=== PATIENT | female | born 1995 | race African-American/Black ===

== ENCOUNTER 2016-09-17 17:40 | Emergency (ER) | payer OTHER ==
--- NOTE | 2016-09-17 18:00 | ER Document Report ---
ED Medical Screen (RME) - General Chief Complaint: Shortness Of Breath Stated Complaint: CHEST PAIN AND BREATHING CONCERNS Time seen by provider: 17:58 Mode of Arrival: Ambulatory Information source: Patient Notes: 21 yo female presents to ed for short of breath and chest discomfort for a couple weeks after childbirth 3 months ago TRAVEL OUTSIDE OF THE [place] IN LAST 30 DAYS: No - HPI Onset: Other - 3 months Onset/Duration: Persistent Quality of pain: No pain, Dull, Sharp Severity: Severe Pain Level: 5 Associated Symptoms: Chest pain, Shortness of breath Exacerbated by: Denies Relieved by: Denies Similar symptoms previously: Yes Recently seen / treated by doctor: No - Related Data Smoking: Non-smoker Frequency of alcohol use: Rare Drug Abuse: None Allergies/Adverse Reactions: No Known Allergies Allergy (Verified 06/06/16 10:40) Past Medical History Pulmonary Medical History: Reports: Hx Asthma Neurological Medical History: Reports: Hx Migraine - Immunizations Hx Diphtheria, Pertussis, Tetanus Vaccination: No - unknown Physical Exam - Vital signs Vitals: Temp Pulse Resp BP Pulse Ox 98.1 F 63 16 131/83 H 100 09/17/16 17:44 09/17/16 17:44 09/17/16 17:44 09/17/16 17:44 09/17/16 17:44 Course - Vital Signs Vital signs: Temp Pulse Resp BP Pulse Ox 98.1 F 63 16 131/83 H 100 09/17/16 17:44 09/17/16 17:44 09/17/16 17:44 09/17/16 17:44 09/17/16 17:44
[2016-09-17 18:21] LABS: ABSOLUTE EOSINOPHILS # (AUTO) 0.1 10^3/uL (0.0-0.6); ABSOLUTE LYMPHOCYTES (AUTO) 2.2 10^3/uL (0.5-4.7); ABSOLUTE MONOCYTES (AUTO) 0.5 10^3/uL (0.1-1.4); ABSOLUTE NEUT (AUTO) 2.5 10^3/uL (1.7-8.2); BASOPHILS % (AUTO) 0.8 % (0-2); EOSINOPHILS % (AUTO) 1.2 % (0-6); HEMATOCRIT 41.8 % (36.0-47.0); HEMOGLOBIN 13.6 g/dL (12.0-15.5); LYMPHOCYTES % (AUTO) 41.1 % (13-45); MEAN CORPUSCULAR HEMOGLOBIN 28.5 pg (27.0-33.4); MEAN CORPUSCULAR HGB CONC 32.7 g/dL (32.0-36.0); MEAN CORPUSCULAR VOLUME 87 fl (80-97); MONOCYTES % (AUTO) 9.4 % (3-13); RED BLOOD COUNT 4.78 10^6/uL (3.72-5.28); SEGMENTED NEUTROPHILS % (AUTO) 47.5 % (42-78); WHITE BLOOD COUNT 5.3 10^3/uL (4.0-10.5)
[2016-09-17 18:32] LABS: APPEARANCE,URINE CLEAR; BILIRUBIN,URINE NEGATIVE (NEGATIVE); GLUCOSE, URINE NEGATIVE (NEGATIVE); KETONES,URINE NEGATIVE (NEGATIVE); LEUKOCYTE ESTERASE,URINE NEGATIVE (NEGATIVE); NITRITE,URINE NEGATIVE (NEGATIVE); PROTEIN,URINE NEGATIVE (NEGATIVE); URINE SPECIFIC GRAVITY 1.013
[2016-09-17 18:42] LABS: ALANINE AMINOTRANSFERASE 29 U/L (9-52); ALBUMIN 5.1 g/dL (3.5-5.0); ALKALINE PHOSPHATASE 114 U/L (38-126); ANION GAP 16 (5-19); BILIRUBIN,TOTAL 0.6 mg/dL (0.2-1.3); BLOOD UREA NITROGEN 10 mg/dL (7-20); CALCIUM 10.2 mg/dL (8.4-10.2); CARBON DIOXIDE 24 mmol/L (22-30); CHLORIDE 105 mmol/L (98-107); GLUCOSE 94 mg/dL (75-110); LIPASE 189.1 U/L (23-300); POTASSIUM 3.7 mmol/L (3.6-5.0); SODIUM 144.8 mmol/L (137-145)
[2016-09-17 18:44] LABS: ASPARTATE AMINO TRANSFERASE 20 U/L (14-36)
[2016-09-17 22:24] VITALS: BP 129/87
--- NOTE | 2016-09-17 22:29 | ER Document Report ---
ED General - General Chief Complaint: Chest Pain Stated Complaint: CHEST PAIN AND BREATHING CONCERNS Mode of Arrival: Ambulatory Notes: Patient is a 21-year-old female without past medical history, 3 months after an uncomplicated vaginal delivery who presents with 10 weeks of intermittent shortness of breath and chest pain. Does describe the chest pain is an intermittent, dull, pressure-like sensation in her central chest. Nothing improves or worsens the pain. Denies any pleuritic pain. States that occasionally pain is worsened by laying flat or pressing on the chest. She notes that she occasionally feels short of breath without any clear reason. It is not worsened by exertion. Denies history of similar symptoms in the past. Nothing improves her symptoms. She has not seen her primary care physician regarding today's concerns. Denies any history of DVT or pulmonary embolus. She does not use any estrogen. Denies any hemoptysis, unilateral leg swelling, syncope, weakness or numbness. No fever. TRAVEL OUTSIDE OF THE [place] IN LAST 30 DAYS: No - Related Data Allergies/Adverse Reactions: No Known Allergies Allergy (Verified 06/06/16 10:40) Past Medical History - General Information source: Patient - Social History Smoking Status: Never Smoker Chew tobacco use (# tins/day): No Frequency of alcohol use: Rare Drug Abuse: None Lives with: Spouse/Significant other Family History: Reviewed & Not Pertinent Patient has suicidal ideation: No Patient has homicidal ideation: No Pulmonary Medical History: Reports: Hx Asthma Neurological Medical History: Reports: Hx Migraine - Immunizations Hx Diphtheria, Pertussis, Tetanus Vaccination: No - unknown Review of Systems - Review of Systems Notes: Constitutional: Negative for fever. HENT: Negative for sore throat. Eyes: Negative for visual changes. Cardiovascular: Positive for chest pain. Respiratory: Positive for shortness of breath. Gastrointestinal: Negative for abdominal pain, vomiting or diarrhea. Genitourinary: Negative for dysuria. Musculoskeletal: Negative for back pain. Skin: Negative for rash. Neurological: Negative for headaches, weakness or numbness. 10 point ROS negative except as marked above and in HPI. Physical Exam - Vital signs Vitals: Temp Pulse Resp BP Pulse Ox 98.1 F 63 16 131/83 H 100 09/17/16 17:44 09/17/16 17:44 09/17/16 17:44 09/17/16 17:44 09/17/16 17:44 Notes: PHYSICAL EXAMINATION: GENERAL: Well-appearing, well-nourished and in no acute distress. HEAD: Atraumatic, normocephalic. EYES: Pupils equal round and reactive to light, extraocular movements intact, sclera anicteric, conjunctiva are normal. ENT: nares patent, oropharynx clear without exudates. Moist mucous membranes. NECK: Normal range of motion, supple without lymphadenopathy LUNGS: Breath sounds clear to auscultation bilaterally and equal. No wheezes rales or rhonchi. HEART: Regular rate and rhythm without murmurs ABDOMEN: Soft, nontender, normoactive bowel sounds. No guarding, no rebound. No masses appreciated. EXTREMITIES: Normal range of motion, no pitting or edema. No cyanosis. NEUROLOGICAL: No focal neurological deficits. Moves all extremities spontaneously and on command. PSYCH: Normal mood, normal affect. SKIN: Warm, Dry, normal turgor, no rashes or lesions noted. Course - Re-evaluation Re-evalutation: 09/18/16 03:21 Presentation of chest pain in an otherwise well appearing patient. Low clinical suspicion for ACS given clinical history, exam, EKG without ST elevations or depressions, and negative initial troponin. HEART score less than or equal to 3. PE also seems unlikely given clinical history, absence of tachycardia or dyspnea. Patient is PERC criteria negative however, given that her chest pain with dyspnea started within 3 weeks of her vaginal delivery a d-dimer was obtained to evaluate for the possibility of a pulmonary embolus. This was negative so I will not proceed with a CTA at this time. CXR without evidence of pneumothorax or pneumonia. No widened mediastinum. Aortic dissection also seems unlikely given history, symmetric pulses, CXR, and vitals. Patient does also admit to severe, chronic daily anxiety that she feels may be playing into this intermittent chest pain as well as shortness of breath. Her at the bedside agrees and states that he believes her symptoms are related to anxiety. After discussion with the patient and her bedside regarding medical management of chronic daily anxiety, will start fluoxetine 20 mg daily at this time and have expressed to them the clear need to follow closely with primary care physician for continued management of this condition. At this time will discharge with return precautions and follow-up recommendations. Verbal discharge instructions given a the bedside and opportunity for questions given. Medication warnings reviewed. Patient is in agreement with this plan and has verbalized understanding of return precautions and the need for primary care follow-up in the next 24-72 hours. - Vital Signs Vital signs: Temp Pulse Resp BP Pulse Ox 97.9 F 50 L 14 129/87 H 100 09/17/16 22:23 09/17/16 22:23 09/17/16 22:23 09/17/16 22:23 09/17/16 22:23 - Laboratory Result Diagrams: 09/17/16 18:00 09/17/16 18:00 Laboratory results interpreted by me: 09/17/16 09/17/16 18:00 18:00 Albumin 5.1 H Urine Urobilinogen 2.0 H - Diagnostic Test Radiology reviewed: Image reviewed, Reports reviewed Radiology results interpreted by me: 09/18/16 03:23 Chest x-ray: No acute infiltrate or pneumothorax. - EKG Interpretation by Me Additional EKG results interpreted by me: 09/18/16 03:23 Normal sinus rhythm. No ST elevations or depressions. Rate 67. Discharge - Discharge Clinical Impression: Chest pain Qualifiers: Chest pain type: unspecified Qualified Code(s): R07.9 - Chest pain, unspecified Dyspnea Qualifiers: Dyspnea type: shortness of breath Qualified Code(s): R06.02 - Shortness of breath Condition: Good Disposition: HOME, SELF-CARE Additional Instructions: You were seen today for chest pain. The exact cause of your pain is unclear. However, based on your cardiac enzyme testing, chest x-ray, and EKG it does not appear that it is from an immediately life-threatening cause at this time. Although your testing here is normal is critical that you follow-up with your primary care physician for continued evaluation of this chest pain. Please return to emergency department immediately if you have worsening of your chest pain, shortness of breath, vomiting, become unable to exert yourself due to pain or difficulty breathing, you pass out, or have any pain that radiates into your arms, jaw, or back. Please also return if you have any additional symptoms that are concerning to you. Prescriptions: Fluoxetine HCl 20 mg PO DAILY #60 capsule
== END 2016-09-17 22:34 | disposition home or self-care (01) ==
LOC: ER 17:40
DX: R07.89 Other chest pain (principal); R06.02 Shortness of breath; J45.909 Unspecified asthma, uncomplicated; F41.9 Anxiety disorder, unspecified
CPT/HCPCS: 36415; 71020; 80053; 81001; 83690; 84484; 84703; 85025; 85379; 99285

== ENCOUNTER → 2019-05-09 | Outpatient (CLI) | payer SELFPAY ==
--- NOTE | 2019-05-09 14:40 | RADIOLOGY REPORT (SQ) ---
EXAM DESCRIPTION: U/S [id number] TRNABD 1GES W/ODOP COMPLETED DATE/TIME: 05/09/2019 2:26 pm REASON FOR STUDY: Z34.81 ENCOUNTER FOR SUPRVSN OF NORMAL , FIRST TRIMESTER Z34.81 ENCOUNTE R FOR SUPRVSN OF NORMAL , FIRST TRIM COMPARISON: None. TECHNIQUE: Transabdominal static and realtime grayscale images acquired of the pelvis. Additional se lected spectral and color Doppler images recorded. All images stored on PACs. bHCG: Not applicable. CLINICAL DATES: LMP 02/06/2019. 13 weeks 1 day. LIMITATIONS: None. FINDINGS: FETUS: Single Living intrauterine . ULTRASOUND EGA: 13 weeks 3 days. ULTRASOUND YOSHI: 11/11/2019 EFW: Not applicable less than 20 weeks. CRL: 7.27 cm. FHR: 141 beats per minute. SURVEY: No visualized anomalies. AMNIOTIC FLUID: Adequate amount. PLACENTA: Not yet developed due to early gestation. SUBCHORIONIC BLEED: Yes SIZE OF BLEED: 19 x 27 x 14 mm. UTERUS: No masses. No anomalies. CERVICAL LENGTH: 2.7 cm. Closed. RIGHT ADNEXA: Normal ovary with normal vascular flow. 3.6 x 2.4 x 2 cm. No adnexal free fluid. No adnexal masses. LEFT ADNEXA: Normal ovary with normal vascular flow. 3 x 2.2 x 1.7 cm. No adnexal free fluid. No adnexal masses. FREE FLUID: None. OTHER: No other significant finding. IMPRESSION: LIVING INTRAUTERINE . EGA 13 weeks 3 days. Trimester of : Second trimester - 13 weeks 1 day to 27 weeks 6 days. TECHNICAL DOCUMENTATION: JOB ID: [id number]- All Rights Reserved rev Reading location - IP/workstation name: [email or web address]
== END ==
LOC: RAD 14:00
PROVIDERS: ATTEND Midwife
DX: Z34.82 Encounter for supervision of other normal pregnancy, second trimester (principal)
CPT/HCPCS: 76801

== ENCOUNTER 2019-05-14 04:48 | Emergency (ER) | payer MEDICAID ==
[2019-05-14 05:12] LABS: ABSOLUTE EOSINOPHILS # (AUTO) 0.1 10^3/uL (0.0-0.6); ABSOLUTE LYMPHOCYTES (AUTO) 2.4 10^3/uL (0.5-4.7); ABSOLUTE MONOCYTES (AUTO) 0.8 10^3/uL (0.1-1.4); BASOPHILS % (AUTO) 0.4 % (0-2); EOSINOPHILS % (AUTO) 1.2 % (0-6); HEMATOCRIT 35.2 % (36.0-47.0); HEMOGLOBIN 11.9 g/dL (12.0-15.5); MEAN CORPUSCULAR HEMOGLOBIN 29.7 pg (27.0-33.4); MEAN CORPUSCULAR HGB CONC 33.7 g/dL (32.0-36.0); MEAN CORPUSCULAR VOLUME 88 fl (80-97); MONOCYTES % (AUTO) 9.9 % (3-13); PLATELET COUNT 285 10^3/uL (150-450); RED CELL DISTRIBUTION WIDTH 14.2 % (11.5-14.0); SEGMENTED NEUTROPHILS % (AUTO) 59.5 % (42-78); TOTAL CELLS COUNTED % (AUTO) 100 %; WHITE BLOOD COUNT 8.4 10^3/uL (4.0-10.5)
--- NOTE | 2019-05-14 06:20 | RADIOLOGY REPORT (SQ) ---
EXAM DESCRIPTION: US LIMITED COMPLETED DATE/TME: 05/14/2019 04:53 CLINICAL HISTORY: 24 years, Female, vaginal bleeding 13weeks COMPARISON: None. TECHNIQUE: Transabdominal pelvic ultrasound LIMITATIONS: None. FINDINGS: Maternal: Ovaries: Right ovary measures 4.1 x 1.5 x 2.9 cm. The right ovary demonstrates normal Doppler flow. The left ovary is not uniquely identified. Cervix: Closed and approximately 3.3 cm in length. : Number: Cisneros. Status: Live . Presentation: Variable. Heart rate: 144 bpm. DIAMOND: Subjectively within normal limits . Placenta: Position: Posterior. Complications: No previa or abruptio. Biometry: BPD: 2.55 cm = 14 weeks 3 days. HC: 9.68 cm = 14 weeks 3 days. AC: 8.27 cm = 14 weeks 4 days. FL: 1.25 cm = 13 weeks 5 days. Ratios (%): FL/AC: 15.1 (20-24). FL/BPD: 49.0 (71-87). HC/AC: 1.17 (1.14-1.30). CI: 82.0 (70-86). Clinical: LMP: 02/04/2019. MA: 14 weeks one day. YOSHI: 11/11/2019. Ultrasound: MA: 14 weeks two days. YOSHI: 11/10/2019. IMPRESSION: Single live intrauterine , as described above copyright 2010 [employer]- All Rights Reserved
[2019-05-14 06:35] LABS: APPEARANCE,URINE SLIGHTLY-CLOUDY; BILIRUBIN,URINE NEGATIVE (NEGATIVE); COLOR,URINE YELLOW; GLUCOSE, URINE NEGATIVE (NEGATIVE); KETONES,URINE NEGATIVE (NEGATIVE); LEUKOCYTE ESTERASE,URINE NEGATIVE (NEGATIVE); NITRITE,URINE NEGATIVE (NEGATIVE); PROTEIN,URINE NEGATIVE (NEGATIVE); URINE SPECIFIC GRAVITY 1.029; UROBILINOGEN,URINE NEGATIVE mg/dL (<2.0)
[2019-05-14 06:43] VITALS: BP 110/63
--- NOTE | 2019-05-14 09:12 | ER Document Report ---
Entered by ANTONIO LARSEN SCRIBE 05/14/19 0614 Acting as scribe for:GODFREY DURAND MD ED GI/ - General Chief Complaint: Vag Bleeding, +preg <12wks Stated Complaint: POSSIBLE MISCARAGE Time Seen by Provider: 05/14/19 06:05 Mode of Arrival: Ambulatory Information source: Patient Notes: 24 year old female that presents to the emergency department today with complaints of vaginal bleeding which began just prior to arrival this morning. Patient is , currently 14 weeks . Patient reports having minimal abdominal cramping last night. Patient reported to a nurse in triage that she felt a "warm agarwal in her underwear" when getting up out of bed this morning and she had passed a large clot. Patient is known to have O+ blood type. Patient is taking vitamins. TRAVEL OUTSIDE OF THE [place] IN LAST 30 DAYS: No - Related Data Allergies/Adverse Reactions: No Known Allergies Allergy (Verified 06/06/16 10:40) Past Medical History - General Information source: Patient - Social History Smoking Status: Unknown if Ever Smoked Cigarette use (# per day): No Chew tobacco use (# tins/day): No Frequency of alcohol use: None Drug Abuse: None Lives with: Family Family History: Reviewed & Not Pertinent Patient has suicidal ideation: No Patient has homicidal ideation: No Pulmonary Medical History: Reports: Hx Asthma Neurological Medical History: Reports: Hx Migraine - Immunizations Hx Diphtheria, Pertussis, Tetanus Vaccination: No - unknown Review of Systems - Review of Systems Constitutional: No symptoms reported EENT: No symptoms reported Cardiovascular: No symptoms reported Respiratory: No symptoms reported Gastrointestinal: No symptoms reported Genitourinary: No symptoms reported Female Genitourinary: See HPI, - 14 weeks, Vaginal bleeding Musculoskeletal: No symptoms reported Skin: No symptoms reported Hematologic/Lymphatic: No symptoms reported Neurological/Psychological: No symptoms reported -: Yes All other systems reviewed and negative Physical Exam - Vital signs Vitals: Temp Pulse Resp BP Pulse Ox 98.3 F 78 16 114/66 100 05/14/19 04:51 05/14/19 04:51 05/14/19 04:51 05/14/19 04:51 05/14/19 04:51 - Notes Notes: Physical Exam: General: Alert, appears well, gravid female. HEENT: Normocephalic. Atraumatic. PERRL. Extraocular movements intact. Oropharynx clear. Neck: Supple. Non-tender. Respiratory: No respiratory distress. Clear and equal breath sounds bilaterally. Cardiovascular: Regular rate and rhythm. Abdominal: Gravid female. Non-tender. No distension. Normal Bowel Sounds. Back: No gross abnormalities. Extremities: Moves all four extremities. Upper extremities: Normal inspection. Normal ROM. Lower extremities: Normal inspection. No edema. Normal ROM. Neurological: Normal cognition. AAOx4. Normal speech. Psychological: Normal affect. Normal Mood. Skin: Warm. Dry. Normal color. Course - Vital Signs Vital signs: Temp Pulse Resp BP Pulse Ox 98 F 68 17 110/63 99 05/14/19 06:42 05/14/19 06:42 05/14/19 06:42 05/14/19 06:42 05/14/19 06:42 - Laboratory Result Diagrams: 05/14/19 04:55 Laboratory results interpreted by me: 05/14/19 05/14/19 05/14/19 04:55 04:55 06:00 Hgb 11.9 L Hct 35.2 L RDW 14.2 H Beta HCG, Quant 32339.00 H Urine Blood LARGE H Urine Ascorbic Acid 20 H - Diagnostic Test Radiology reviewed: Image reviewed - Ultrasound shows a single intrauterine measuring 14 weeks 2 days with heart rate 144. There appears to be some subchorionic bleed. Discharge - Discharge Clinical Impression: with 14 completed weeks gestation, Vaginal bleeding in Subchorionic bleed Qualifiers: Fetus number: single or unspecified fetus Trimester: second trimester Qualified Code(s): O41.8X20 - Other specified disorders of amniotic fluid and membranes, second trimester, not applicable or unspecified; O46.8X2 - Other antepartum hemorrhage, second trimester Condition: Stable Disposition: HOME, SELF-CARE Additional Instructions: Bleeding During Early You have been evaluated for passing blood while . While we take this symptom very seriously, most women with your degree of bleeding will go on to have a perfectly normal baby. At this time, there is no indication that a miscarriage will occur. (A miscarriage occurs when the fetus is abnormal. There is no medicine or treatment to prevent it.) A more serious cause of bleeding is tubal . An ultrasound can show whether the is in the uterus or in the tube. Sometimes in early , no fetus is seen. In this case, careful follow-up, including repeat blood tests and repeat ultrasound, is necessary. You should rest in bed until the symptoms have resolved. Do not douche or have sex for at least a week, or until OK'd by the doctor. Don't use tampons. Call the doctor or return for re-examination if there is an increase in bleeding or cramping, extreme weakness, fainting, new abdominal pain, fever, or passage of tissue. Follow-up with [facility] this week as scheduled. If you have additional bleeding and clots, call [facility] to be seen on Wednesday. RETURN TO THE EMERGENCY ROOM IF ANY NEW OR WORSENING SYMPTOMS. Forms: Return to Work Scribe Attestation: 05/14/19 06:22 I personally performed the services described in the documentation, reviewed and edited the documentation which was dictated to the scribe in my presence, and it accurately records my words and actions. I personally performed the services described in the documentation, reviewed and edited the documentation which was dictated to the scribe in my presence, and it accurately records my words and actions.
== END 2019-05-14 06:42 | disposition home or self-care (01) ==
LOC: ER 04:48
DX: O20.8 Other hemorrhage in early pregnancy (principal); O99.512 Diseases of the respiratory system complicating pregnancy, second trimester; J45.909 Unspecified asthma, uncomplicated; Z3A.14 14 weeks gestation of pregnancy; Z79.899 Other long term (current) drug therapy
CPT/HCPCS: 36415; 76815; 81001; 84702; 85025; 86900; 86901; 99284

== ENCOUNTER 2019-10-06 07:59 | Outpatient (CLI) | payer MEDICAID ==
[2019-10-06 08:32] LABS: APPEARANCE,URINE CLEAR; BILIRUBIN,URINE NEGATIVE (NEGATIVE); COLOR,URINE YELLOW; GLUCOSE, URINE NEGATIVE (NEGATIVE); KETONES,URINE NEGATIVE (NEGATIVE); LEUKOCYTE ESTERASE,URINE NEGATIVE (NEGATIVE); NITRITE,URINE NEGATIVE (NEGATIVE); PROTEIN,URINE NEGATIVE (NEGATIVE); URINE SPECIFIC GRAVITY 1.014; UROBILINOGEN,URINE NEGATIVE mg/dL (<2.0)
[2019-10-06 08:57] LABS: URINE AMPHETAMINES SCREEN NEGATIVE; URINE BARBITURATES SCREEN NEGATIVE; URINE BENZODIAZEPINES SCREEN NEGATIVE; URINE COCAINE SCREEN NEGATIVE; URINE MARIJUANA (THC) SCREEN NEGATIVE; URINE METHADONE SCREEN NEGATIVE; URINE PHENCYCLIDINE SCREEN NEGATIVE
[2019-10-06 09:13] LABS: A TYPE INFLUENZA AG NEGATIVE (NEGATIVE); B INFLUENZA AG NEGATIVE (NEGATIVE)
[2019-10-06] MEDS ORDERED: ACETAMINOPHEN 325 MG TABLET PO ONE (10:23)
[2019-10-06] MEDS ORDERED: ACETAMINOPHEN 325 MG TABLET ONE (10:25)
== END 2019-10-06 10:43 | disposition home or self-care (01) ==
LOC: LC 07:59
PROVIDERS: ATTEND Student in an Organized Health Care Education/Training Program
PROC: 4A1HXCZ Monitoring of Products of Conception, Cardiac Rate, External Approach (ICD-10-PCS; principal; 2019-10-06)
DX: O98.513 Other viral diseases complicating pregnancy, third trimester (principal); B33.8 Other specified viral diseases; Z3A.34 34 weeks gestation of pregnancy
CPT/HCPCS: 81001; 80307; 87804; 59025; J3490

== ENCOUNTER 2019-11-17 03:58 | Inpatient (IN) | payer MEDICAID ==
[2019-11-17 04:39] LABS: APPEARANCE,URINE SLIGHTLY-CLOUDY; BILIRUBIN,URINE NEGATIVE (NEGATIVE); COLOR,URINE YELLOW; GLUCOSE, URINE NEGATIVE (NEGATIVE); KETONES,URINE NEGATIVE (NEGATIVE); LEUKOCYTE ESTERASE,URINE SMALL (NEGATIVE); NITRITE,URINE NEGATIVE (NEGATIVE); PROTEIN,URINE NEGATIVE (NEGATIVE); URINE SPECIFIC GRAVITY 1.011; UROBILINOGEN,URINE NEGATIVE mg/dL (<2.0)
[2019-11-17 04:56] LABS: URINE AMPHETAMINES SCREEN NEGATIVE; URINE BARBITURATES SCREEN NEGATIVE; URINE BENZODIAZEPINES SCREEN NEGATIVE; URINE COCAINE SCREEN NEGATIVE; URINE MARIJUANA (THC) SCREEN NEGATIVE; URINE METHADONE SCREEN NEGATIVE; URINE PHENCYCLIDINE SCREEN NEGATIVE
[2019-11-17] MEDS ORDERED: OXYTOCIN 10 UNIT/ML VIAL ONE (05:09)
[2019-11-17] MEDS ORDERED: OXYTOCIN/NORMAL SALINE 20 UNIT/1,000 ML RTUINJ ONE (05:10)
[2019-11-17] MEDS ORDERED: PENICILLIN G-K 5 MILLION UNIT VIAL ONE (05:10)
[2019-11-17] MEDS ORDERED: MISOPROSTOL 0.2 MG TABLET ONE (05:10)
[2019-11-17] MEDS ORDERED: LIDOCAINE 1% INJ-PF (10 MG/ML) 30 ML SDV ONE (05:10)
[2019-11-17] MEDS ORDERED: RINGERS SOLUTION,LACTATED 1,000 ML IV PRN (05:14)
--- NOTE | 2019-11-17 05:35 | Admission Physical ---
Datetime Report Generated by CPN: 11/17/2019 05:35 CURRENT ADMISSION Chief Complaint: Uterine Contractions Indication for Induction: Not Applicable Admit Impression : Term, Intrauterine Admit Plan: Admit to Unit; Initiate Labor Protocol ALLERGIES Medication Allergies: No Medication Allergies: No Known Allergies (11/17/2019) Latex: No Latex Allergies OBSTETRICAL HISTORY EDC: 11/11/2019 00:00 : 2 Para: 1 Term: 1 : 0 SAB: 0 IAB: 0 Ectopic: 0 Livin Cesareans: 0 VBACs: 0 Multiple Births: 0 Gestational Diabetes: No Rh Sensitization: No Incompetent Cervix: No RICO: No Infertility: No ART Treatment: No Uterine Anomaly: No IUGR: No Hx Previous C/S: No Macrosomia: Yes Hx Loss/Stillborn: No PIH: Unknown Hx : No Placenta Previa/Abruption: No Depression/PP Depression: No PTL/PROM: No Post Hemorrhage: No Current Procedures: Ultrasound; NST Obstetrical History Comments: G1- questionable elevated blood pressure and headaches after last , Del 9lb female at term 05/2016 G-2 no complaints. Tx for BV and yeast SEE RECORDS Alcohol: No Marijuana : No Cocaine: No Other Illicit Drugs: No Cigarettes: Never Smoker. [id number] MEDICAL HISTORY Diabetes: No Blood Transfusion: No Pulmonary Disease (Asthma, TB): Yes Breast Disease: No Hypertension: No Independent Driver Surgery: No Heart Disease: No Hosp/Surgery: Yes Autoimmune Disorder: No Anesthetic Complications: No Kidney Disease: No Abnormal Pap Smear: No Neuro/Epilepsy: No Psychiatric Disorders: No Other Medical Diseases: No Hepatitis/Liver Disease: No Significant Family History: No Varicosities/Phlebitis: No Trauma/Violence : No Thyroid Dysfunction: No INFECTIOUS HISTORY Gonorrhea: No Genital Herpes: No Chlamydia: No Tuberculosis: No Syphilis: No Hepatitis: No HIV/AIDS Exposure: No Rash or Viral Illness: No HPV: No PHYSICAL EXAM General: Normal HEENT: Normal Neurologic: Normal Thyroid: Normal Heart: Normal Lungs: Normal Breast: Deferred Back: Normal Abdomen: Normal Genitourinary Exam: Normal Extremities: Normal DTRs: Normal Pelvic Type: Adequate FETUS A EGA: 40.6 PLANS FOR LABOR AND DELIVERY Labor and Delivery: None Pain Management: Epidural Feeding Preference: Formula Benefit of Breast Feed Discussed: Yes Circumcision: N/A INFORMED CONSENT Signature: with User ID: [email or web address]
[2019-11-17] MEDS ORDERED: RINGERS SOLUTION,LACTATED 1,000 ML IV ONE (06:00)
[2019-11-17] MEDS ORDERED: PENICILLIN G POTASSIUM 5,000,000 UNIT in DEXTROSE 5%-WATER 100 ML IV ONE (06:00)
[2019-11-17] MEDS ORDERED: BENZOCAINE/MENTHOL AEROSOL SPRAY 56 ML TOP PRN (06:20)
[2019-11-17] MEDS ORDERED: ZOLPIDEM TARTRATE 5 MG TABLET PO PRN (06:20)
[2019-11-17] MEDS ORDERED: GLYCERIN/WITCH HAZEL LEAF 1 EACH MED..WIPE TP PRN (06:20)
[2019-11-17] MEDS ORDERED: DIPHENHYDRAMINE HCL 25 MG CAPSULE PO PRN (06:20)
[2019-11-17] MEDS ORDERED: PROMETHAZINE HCL 25 MG TABLET PO PRN (06:20)
[2019-11-17] MEDS ORDERED: DIBUCAINE 1% OINTMENT 28 GM TP PRN (06:20)
[2019-11-17] MEDS ORDERED: PROMETHAZINE HCL 25 MG SUPP.RECT PR PRN (06:20)
[2019-11-17] MEDS ORDERED: DIPH/PERTUSS(ACELL)/TETANUS VAC/PF 0.5 ML SYR (>=10YO) IM PRN (06:20)
[2019-11-17] MEDS ORDERED: ACETAMINOPHEN WITH CODEINE #3 TABLET PO PRN (06:20)
[2019-11-17] MEDS ORDERED: OXYTOCIN/NORMAL SALINE 20 UNIT/1,000 ML RTUINJ IV PRN (06:20)
[2019-11-17] MEDS ORDERED: PROMETHAZINE HCL INJ 25 MG/1 ML VIAL IV PRN (06:20)
[2019-11-17] MEDS ORDERED: MEASLES,MUMPS&RUBELLA VACC/PF 0.5 ML VIAL SUBCUT PRN (06:20)
[2019-11-17] MEDS ORDERED: NA PHOS,M-B/NA PHOS,DI-BA (ADULT) 133 ML ENEMA PR PRN (06:20)
[2019-11-17] MEDS ORDERED: PSEUDOEPHEDRINE HCL 30 MG TABLET PO PRN (06:20)
[2019-11-17] MEDS ORDERED: MAGNESIUM HYDROXIDE SUSP 30 ML UDCUP PO PRN (06:20)
[2019-11-17] MEDS ORDERED: ACETAMINOPHEN 650 MG SUPP.RECT PR PRN (06:20)
[2019-11-17] MEDS ORDERED: ACETAMINOPHEN WITH CODEINE #3 TABLET ONE (06:27)
[2019-11-17] MEDS ORDERED: IBUPROFEN 800 MG TABLET ONE (06:27)
[2019-11-17 07:00] LABS: ABSOLUTE LYMPHOCYTES (AUTO) 1.2 10^3/uL (0.5-4.7); ABSOLUTE MONOCYTES (AUTO) 0.7 10^3/uL (0.1-1.4); ABSOLUTE NEUT (AUTO) 6.4 10^3/uL (1.7-8.2); BASOPHILS % (AUTO) 0.3 % (0-2); EOSINOPHILS % (AUTO) 0.3 % (0-6); HEMATOCRIT 35.2 % (36.0-47.0); LYMPHOCYTES % (AUTO) 13.8 % (13-45); MEAN CORPUSCULAR HEMOGLOBIN 31.5 pg (27.0-33.4); MEAN CORPUSCULAR HGB CONC 34.2 g/dL (32.0-36.0); MEAN CORPUSCULAR VOLUME 92 fl (80-97); MONOCYTES % (AUTO) 8.5 % (3-13); PLATELET COUNT 214 10^3/uL (150-450); RED BLOOD COUNT 3.82 10^6/uL (3.72-5.28); RED CELL DISTRIBUTION WIDTH 15.5 % (11.5-14.0); SEGMENTED NEUTROPHILS % (AUTO) 77.1 % (42-78); TOTAL CELLS COUNTED % (AUTO) 100 %; WHITE BLOOD COUNT 8.3 10^3/uL (4.0-10.5)
--- NOTE | 2019-11-17 07:53 | Delivery Summary ---
Del Sum A-C Datetime Report Generated by CPN: 11/17/2019 07:53 DELIVERY PERSONNEL DELIVERY PERSONNEL: [id number] Delivery Doctor:: Paco Rubi MD Labor and Delivery Nurse:: Geno Donnelly RNmaterial mixer Nurse:: Dodie [facility], RN MATERNAL INFORMATION Delivery Anesthesia: None Medications After Delivery: Pitocin Bolus-Please Comment Meds After Delivery Comment: Pitocin 20 units/1000 ml NSS Estimated Blood Loss (ml): 200 Delivery QBL: 200 Maternal Complications: Precipitous Labor (<3hrs) LABOR SUMMARY EDC: 11/11/2019 00:00 No. Babies in Womb: 1 Attempted: No Labor Anesthesia: None LABOR INFORMATION Reason for Induction: Not Applicable Onset of Labor: 11/17/2019 02:30 Complete Dilatation: 11/17/2019 05:39 Oxytocin: N/A Group B Beta Strep: Positive Antibiotics # of Doses: 1 Antibiotics Time of Last Dose: 521 Name of Antibiotic Given: PCN Steroids Given: None Reason Steroids Not Administered: Not Applicable MEMBRANES Membranes Rupture Method: Artificial Rupture of Membranes: 11/17/2019 05:43 Length of Rupture (hr): 0.45 Amniotic Fluid Color: Clear Amniotic Fluid Amount: Small Amniotic Fluid Odor: Normal STAGES OF LABOR Stage 1 hr: 3 Stage 1 min: 9 Stage 2 hr: 0 Stage 2 min: 31 Stage 3 hr: 0 Stage 3 min: 4 Total Time in Labor hr: 3 Total Time in Labor min: 44 VAGINAL DELIVERY Episiotomy: None Laceration #1: None Laceration Extension #1: N/A Sponge Count Correct: N/A Sharps Count Correct: N/A CSECTION DELIVERY Primary Indication: N/A Secondary Indication: N/A CSection Incidence: N/A Labor: N/A Elective: N/A CSection Incision: N/A BABY A INFORMATION Infant Delivery Date/Time: 11/17/2019 06:10 Method of Delivery: Vaginal Nurse Controlled Delivery: No Born in Route : No : N/A Forceps: N/A Vacuum Extraction: N/A Shoulder Dystocia : No PRESENTATION/POSITION BABY A Presentation: Cephalic Cephalic Presentation: Vertex Vertex Position: Right Occipital Anterior Breech Presentation: N/A PLACENTA INFORMATION BABY A Placenta Delivery Time : 11/17/2019 06:14 Placenta Method of Delivery: Spontaneous Placenta Status: Delivered SCORES BABY A Heart Rate 1 min: >100 bpm Resp Effort 1 min: Good Cry Reflex Irritability 1 min: Cough or Sneeze or Pulls Away Muscle Tone 1 min: Active Motion Color 1 min: Body Bartley, Extremities Blue Resuscitation Effort 1 min: Tactile Stimulation SCORE 1 MIN: 9 Heart Rate 5 min: >100 bpm Resp Effort 5 min: Good Cry Reflex Irritability 5 min: Cough or Sneeze or Pulls Away Muscle Tone 5 min: Active Motion Color 5 min: Body Bartley, Extremities Blue Resuscitation Effort 5 min: Tactile Stimulation SCORE 5 MIN: 9 INFORMATION BABY A Gestational Age at Delivery: 40.6 Gestational Status: Full Term- 39- 40.6 Weeks Infant Outcome : Liveborn Infant Condition : Stable Sex: Female IDENTIFICATION BABY A Verification Date/Time: 11/17/2019 06:17 ID Band Number: [id number] Mother's Name Verified: Yes Infant RN Verifying : , RN Additional Verifying Personnel: Sloane, DIRECTOR OF INDUSTRIAL RELATIONS WEIGHT/LENGTH BABY A Birthweight (gm): 3760 Infant Weight (lb): 8 Weight (oz): 5 Length (in): 18.25 Infant Length (cm): 46.36 CORD INFORMATION BABY A No. Cord Vessels: 3 Nuchal Cord : N/A Cord Blood Taken: Yes-For Eval (Mom's Blood Type - or O+) Infant Suction: Nose ASSESSMENT BABY A Infant Complications: None Physical Findings at Delivery: Within Normal Limits Respirations: Appears Normal Skin to Skin: Yes Skin to Skin Time (min): 30 Transferred To: Remains with Mother SIGNATURES Signature: with User ID: [email or web address]
[2019-11-17] MEDS ORDERED: ALBUTEROL SULFATE HFA (90 MCG/PUFF) 8 GM MDI IH PRN (08:41)
[2019-11-17] MEDS ORDERED: PENICILLIN G POTASSIUM 2,500,000 UNIT in DEXTROSE 5%-WATER 50 ML IV SCH (10:00)
[2019-11-17] MEDS: SENNOSIDES/DOCUSATE 8.6-50 MG 1 EACH TABLET PO SCH (10:39)
[2019-11-17] MEDS: DOCUSATE SODIUM 100 MG CAPSULE PO SCH ×2 (10:39→17:47)
[2019-11-17] MEDS: PRENATAL VITAMIN W DHA CAPSULE PO SCH (10:39)
[2019-11-17] MEDS: FAMOTIDINE 20 MG TABLET PO SCH ×2 (10:39→22:01)
[2019-11-17] MEDS: FERROUS SULFATE 325 MG TABLET PO SCH ×2 (10:40→17:47)
[2019-11-17] MEDS: IBUPROFEN 800 MG TABLET PO SCH ×2 (13:19→22:02)
[2019-11-18] MEDS: IBUPROFEN 800 MG TABLET PO SCH ×3 (05:12→21:54)
[2019-11-18 08:13] LABS: HEMATOCRIT 28.5 % (36.0-47.0); MEAN CORPUSCULAR HEMOGLOBIN 31.8 pg (27.0-33.4); MEAN CORPUSCULAR HGB CONC 34.8 g/dL (32.0-36.0); MEAN CORPUSCULAR VOLUME 91 fl (80-97); PLATELET COUNT 206 10^3/uL (150-450); RED BLOOD COUNT 3.11 10^6/uL (3.72-5.28); RED CELL DISTRIBUTION WIDTH 15.7 % (11.5-14.0); WHITE BLOOD COUNT 12.2 10^3/uL (4.0-10.5)
[2019-11-18 08:16] LABS: HEMOGLOBIN 9.9 g/dL (12.0-15.5)
[2019-11-18] MEDS: FERROUS SULFATE 325 MG TABLET PO SCH ×2 (09:56→17:42)
[2019-11-18] MEDS: DOCUSATE SODIUM 100 MG CAPSULE PO SCH ×2 (09:56→17:42)
[2019-11-18] MEDS: PRENATAL VITAMIN W DHA CAPSULE PO SCH (09:56)
[2019-11-18] MEDS: FAMOTIDINE 20 MG TABLET PO SCH ×2 (09:58→21:55)
[2019-11-18] MEDS: SENNOSIDES/DOCUSATE 8.6-50 MG 1 EACH TABLET PO SCH (10:00)
--- NOTE | 2019-11-18 11:33 | PDOC PROGRESS REPORT ---
Subjective-OB Progress Note for:: 11/18/19 Subjective: OOB in room and halls, feeling good, no c/o, Physical Exam (OB) Vital Signs: Temp Pulse Resp BP Pulse Ox 98.4 F 95 16 112/71 100 11/17/19 19:55 11/17/19 19:55 11/17/19 19:55 11/17/19 19:55 11/17/19 19:55 Intake & Output 11/17/19 11/18/19 11/19/19 06:59 06:59 07:59 Intake Total 900 Balance 900 Weight 70.5 kg - PIH/Pre-Eclampsia Headache: Absent Epigastric Pain: No Visual Changes: No - Lochia Lochia Amount: Scant < 10 ml Lochia Color: Rubra/Red - Abdomen Description: Tender, Soft Hernia Present: No Fundal Description: Firm, Midline Fundal Height: u/u - u/2 Objective-Diagnostic Laboratory: 11/18/19 07:08 11/18/19 07:08 WBC 12.2 H RBC 3.11 L Hgb 9.9 L D Hct 28.5 L MCV 91 MCH 31.8 MCHC 34.8 RDW 15.7 H Plt Count 206 Assessment and Plan(PN) - Assessment and Plan (1) Pre-eclampsia during in third trimester, antepartum Is this a current diagnosis for this admission?: Yes (2) Vaginal delivery Is this a current diagnosis for this admission?: Yes - Time Spent with Patient Time with patient: Less than 15 minutes Medications reviewed and adjusted accordingly: Yes
[2019-11-19] MEDS: IBUPROFEN 800 MG TABLET PO SCH (05:43)
[2019-11-19 07:50] VITALS: BP 106/67
[2019-11-19] MEDS: PRENATAL VITAMIN W DHA CAPSULE PO SCH (09:30)
[2019-11-19] MEDS: FERROUS SULFATE 325 MG TABLET PO SCH (09:30)
[2019-11-19] MEDS: DOCUSATE SODIUM 100 MG CAPSULE PO SCH (09:30)
[2019-11-19] MEDS: SENNOSIDES/DOCUSATE 8.6-50 MG 1 EACH TABLET PO SCH (09:30)
[2019-11-19] MEDS: FAMOTIDINE 20 MG TABLET PO SCH (09:42)
--- NOTE | 2019-11-19 09:48 | PDOC PROGRESS REPORT ---
Subjective-OB Progress Note for:: 11/19/19 Subjective: Doing well, no c/o, bottle feeding, discussed wearing bra, using inhaler as needed Physical Exam (OB) Vital Signs: Temp Pulse Resp BP Pulse Ox 98.2 F 102 H 18 106/67 100 11/19/19 07:48 11/19/19 07:48 11/19/19 07:48 11/19/19 07:48 11/19/19 07:48 Intake & Output 11/18/19 11/19/19 11/20/19 05:59 06:59 06:59 Intake Total Balance - PIH/Pre-Eclampsia Headache: Absent Epigastric Pain: No Visual Changes: No - Lochia Lochia Amount: Small 10-25 ml Lochia Color: Rubra/Red - Abdomen Description: Soft Hernia Present: No Fundal Description: Firm Fundal Height: u/u - u/2 Objective-Diagnostic Laboratory: 11/18/19 07:08 Assessment and Plan(PN) - Assessment and Plan (1) Pre-eclampsia during in third trimester, antepartum Is this a current diagnosis for this admission?: Yes (2) Vaginal delivery Is this a current diagnosis for this admission?: Yes - Time Spent with Patient Time with patient: Less than 15 minutes Medications reviewed and adjusted accordingly: Yes - Disposition Anticipated Discharge: Home Within: within 24 hours
--- NOTE | 2019-11-19 09:53 | PDOC DISCHARGE SUMMARY ---
Impression - Admit/DC Date/PCP Admission Date/Primary Care Provider: 11/17/19 05:12 Discharge Date: 11/19/19 - Discharge Diagnosis (1) Pre-eclampsia during in third trimester, antepartum Is this a current diagnosis for this admission?: Yes (2) Vaginal delivery Is this a current diagnosis for this admission?: Yes - Additional Information Resuscitation Status: Full Code Discharge Diet: As Tolerated, Regular Discharge Activity: Activity As Tolerated, Pelvic Rest Referrals: [facility] [Provider Group] (4 weeks [facility]) Home Medications: Pnv95/Iron Fum/Folic Acid [ Caplet] 1 each PO DAILY #90 tablet 10/06/15 HPI Gestational Age: 40.6 Reason(s) for Admission: Onset of Labor, Group B Strep Positive Procedures: NST, Ultrasound Intrapartum Procedure(s): Spontaneous Vaginal Delivery Hospital Course Hospital Course: routine Results Laboratory Results: WBC 12.2 10^3/uL (4.0-10.5) H 11/18/19 07:08 RBC 3.11 10^6/uL (3.72-5.28) L 11/18/19 07:08 Hgb 9.9 g/dL (12.0-15.5) L D 11/18/19 07:08 Hct 28.5 % (36.0-47.0) L 11/18/19 07:08 MCV 91 fl (80-97) 11/18/19 07:08 MCH 31.8 pg (27.0-33.4) 11/18/19 07:08 MCHC 34.8 g/dL (32.0-36.0) 11/18/19 07:08 RDW 15.7 % (11.5-14.0) H 11/18/19 07:08 Plt Count 206 10^3/uL (150-450) 11/18/19 07:08 Lymph % (Auto) 13.8 % (13-45) 11/17/19 06:35 Harlan % (Auto) 8.5 % (3-13) 11/17/19 06:35 Eos % (Auto) 0.3 % (0-6) 11/17/19 06:35 Baso % (Auto) 0.3 % (0-2) 11/17/19 06:35 Absolute Neuts (auto) 6.4 10^3/uL (1.7-8.2) 11/17/19 06:35 Absolute Lymphs (auto) 1.2 10^3/uL (0.5-4.7) 11/17/19 06:35 Absolute Monos (auto) 0.7 10^3/uL (0.1-1.4) 11/17/19 06:35 Absolute Eos (auto) 0.0 10^3/uL (0.0-0.6) 11/17/19 06:35 Absolute Basos (auto) 0.0 10^3/uL (0.0-0.2) 11/17/19 06:35 Seg Neutrophils % 77.1 % (42-78) 11/17/19 06:35 Urine Color YELLOW 11/17/19 04:11 Urine Appearance SLIGHTLY-CLOUDY 11/17/19 04:11 Urine pH 7.0 (5.0-9.0) 11/17/19 04:11 Ur Specific [place] 1.011 11/17/19 04:11 Urine Protein NEGATIVE mg/dL (NEGATIVE) 11/17/19 04:11 Urine Glucose (UA) NEGATIVE mg/dL (NEGATIVE) 11/17/19 04:11 Urine Ketones NEGATIVE mg/dL (NEGATIVE) 11/17/19 04:11 Urine Blood NEGATIVE (NEGATIVE) 11/17/19 04:11 Urine Nitrite NEGATIVE (NEGATIVE) 11/17/19 04:11 Urine Bilirubin NEGATIVE (NEGATIVE) 11/17/19 04:11 Urine Urobilinogen NEGATIVE mg/dL (<2.0) 11/17/19 04:11 Ur Leukocyte Esterase SMALL (NEGATIVE) H 11/17/19 04:11 Urine Ascorbic Acid NEGATIVE (NEGATIVE) 11/17/19 04:11 Urine Opiates Screen NEGATIVE 11/17/19 04:11 Urine Methadone Screen NEGATIVE 11/17/19 04:11 Ur Barbiturates Screen NEGATIVE 11/17/19 04:11 Ur Phencyclidine Scrn NEGATIVE 11/17/19 04:11 Ur Amphetamines Screen NEGATIVE 11/17/19 04:11 U Benzodiazepines Scrn NEGATIVE 11/17/19 04:11 Urine Cocaine Screen NEGATIVE 11/17/19 04:11 U Marijuana (THC) Screen NEGATIVE 11/17/19 04:11 RPR NONREACTIVE (NONREACTIVE) 11/17/19 06:35 Blood Type O POSITIVE 11/17/19 06:35 Antibody Screen NEGATIVE 11/17/19 06:35 Plan Health Concerns: routine PP Plan of Treatment: dc home, wear bra Goals: rooutine Time Spent: Less than 30 Minutes
== END 2019-11-19 13:06 | disposition home or self-care (01) | DRG 807 ==
LOC: LC 03:58 → LR 05:12 → 2S 08:50
PROVIDERS: ADMIT Obstetrics & Gynecology Gynecology; ATTEND Obstetrics & Gynecology Gynecology
PROC: 10E0XZZ Delivery of Products of Conception, External Approach (ICD-10-PCS; principal; 2019-11-17)
DX: O99.824 Streptococcus B carrier state complicating childbirth (principal); Z37.0 Single live birth; O14.94 Unspecified pre-eclampsia, complicating childbirth; O62.3 Precipitate labor; Z3A.40 40 weeks gestation of pregnancy
CPT/HCPCS: 36415; 80307; 81005; 85025; 85027; 86592; 86850; 86900; 86901; J2540; J2590; J3490; J7060

== ENCOUNTER → 2020-02-02 | Outpatient (CLI) | payer MEDICAID ==
--- NOTE | 2020-02-02 13:55 | RADIOLOGY REPORT (SQ) ---
EXAM DESCRIPTION: VENOUS UNILATERAL LOWER IMAGES COMPLETED DATE/TIME: 02/02/2020 1:47 pm REASON FOR STUDY: RLE SWELLING M79.89 OTHER SPECIFIED SOFT TISSUE DISORDERS COMPARISON: None. TECHNIQUE: Dynamic and static mayes scale and color images acquired of the right leg venous system. S elected spectral images acquired with additional compression and augmentation maneuvers. The contrala teral common femoral vein and saphenofemoral junction were also imaged. Images stored on PACS. LIMITATIONS: None. FINDINGS: COMMON FEMORAL: Normal phasicity, compression and augmentation. No visualized echogenic ma terial on mayes scale. No defects on color images. FEMORAL: Normal compression and augmentation. No visualized echogenic material on mayes scale. No defe cts on color images. POPLITEAL: Normal compression, augmentation. No visualized echogenic material on mayes scale. No defec ts on color images. CALF VESSELS: Normal compression, augmentation. No visualized echogenic material on mayes scale. No de fects on color images. GSV and SSV: Normal compression, augmentation. No visualized echogenic material on mayes scale. No def ects on color images. ANY DEEP VENOUS INSUFFICIENCY: Not evaluated. ANY EVIDENCE OF POPLITEAL CYST: No. OTHER: No other significant finding. CONTRALATERAL COMMON FEMORAL VEIN AND SAPHENOFEMORAL JUNCTION: Normal phasicity, compression and augmentation. No visualized echogenic material on mayes scale. No de fects on color images. IMPRESSION: NO EVIDENCE DVT OR SVT IN THE RIGHT LEG. TECHNICAL DOCUMENTATION: JOB ID: [id number] [employer]- All Rights Reserved Reading location - IP/workstation name: [email or web address]
== END ==
LOC: SP 12:35
PROVIDERS: ATTEND Nurse Practitioner Family
DX: M79.89 Other specified soft tissue disorders (principal)
CPT/HCPCS: 93971

== ENCOUNTER → 2020-07-09 | Outpatient (CLI) | payer MEDICAID ==
--- NOTE | 2020-07-09 15:46 | WOMENS IMAGING REPORT ---
EXAM DESCRIPTION: U/S BREAST UNILATERAL, COMPL IMAGES COMPLETED DATE/TIME: 07/09/2020 8:26 am REASON FOR STUDY: N63.10 UNSPECIFIED LUMP IN THE RIGHT BREAST, UNSPECIFIED QUADRANT N63.10 UNSPECIF IED LUMP IN THE RIGHT BREAST, UNSPECIFIED YOLANDA COMPARISON: None. TECHNIQUE: Real-time and static grayscale imaging performed of the entire right breast. Selected col or Doppler images recorded. LIMITATIONS: None. FINDINGS: MASS: No mass identified. Normal glandular tissue. OTHER: No other significant finding. IMPRESSION: No suspicious findings detected by ultrasound. BIRAD: Negative. RECOMMENDATION: RECOMMENDED FOLLOW-UP: Follow-up as clinically indicated. COMMENT: The [employer] ([employer]) has developed recommendations for screening MRI of the breasts in certain patient populations, to be used in conjunction with mammography. Breast MRI s urveillance may be appropriate for women with more than 20% lifetime risk of developing breast cancer as determined by genetic testing, significant family history of the disease, or history of mantle r adiation for Hodgkins Disease. [employer] Practice Guidelines 2008. TECHNICAL DOCUMENTATION: JOB ID: [id number] 2010 [employer]- All Rights Reserved Reading location - IP/workstation name: [email or web address]
== END ==
LOC: WI 07:32
PROVIDERS: ATTEND Nurse Practitioner Family
DX: N63.10 Unspecified lump in the right breast, unspecified quadrant (principal)
CPT/HCPCS: 76641